=== PATIENT | female | born 1980 | race Caucasian/White ===

== ENCOUNTER 2016-09-03 11:33 | Emergency (ER) | payer BC ==
--- NOTE | 2016-09-19 15:23 | ER ---
ADMIT: 09/03/2016 RM/LOC: ER [facility] MR#: [id number] [address] [id number] JULIANA JAIMES [address] [place] [address] Emergency Room Report SEX: F AGE: 36 : 1980 DATE: 09/03/2016 ADDENDUM: A 36-year-old white female coming in with chest pain. EKG and chest x-ray are negative. This manifested as palpable reproducible chest pain, so this is costochondritis. It is relieved with Motrin. She should use Motrin 800 every 6 x 7 days. Follow up as needed otherwise. CONDITION ON DISCHARGE: Good. Ezra Otero MD/ lorena JOB #: [id number] CC: Ezra Otero MD, Attending Physician Naun Cotter DO, Family Physician
== END 2016-09-03 12:58 | disposition home or self-care (01) ==
LOC: ER 11:33
DX: M94.0 Chondrocostal junction syndrome [Tietze] (principal)